=== PATIENT | male | born 1970 | race African-American/Black ===

== ENCOUNTER 2017-07-23 18:43 | Emergency (ER) | payer MEDICAID, OTHER ==
[~2017-07-23] VITALS: Ht 170.2 cm; Wt 88.9 kg
[2017-07-23 18:43] VITALS: BP 123/90
[2017-07-23] MEDS ORDERED: KETOROLAC TROMETHAMINE INJ 60 MG/2 ML VIAL IM ONE (19:00)
[2017-07-23] MEDS ORDERED: KETOROLAC TROMETHAMINE INJ 30 MG/ML VIAL ONE (19:06)
== END 2017-07-23 19:14 | disposition home or self-care (01) ==
LOC: ER 18:48
DX: M25.562 Pain in left knee (principal); I10 Essential (primary) hypertension; Z88.0 Allergy status to penicillin
CPT/HCPCS: A4606; J1885; Z7610

== ENCOUNTER 2017-11-04 12:35 | Emergency (ER) | payer MEDICAID, OTHER ==
[~2017-11-04] VITALS: Ht 170.2 cm; Wt 90.3 kg
--- NOTE | 2017-11-04 12:40 | NUR ---
PATIENT TO ED DT DISCOLORATION ON LEFT KNEE S/P ARTHROSCOPIC LAST 10/24/17. PATIENT'S VSS.,.
[2017-11-04 13:11] VITALS: BP 130/80
== END 2017-11-04 13:13 | disposition home or self-care (01) ==
LOC: ER 12:36
DX: G89.18 Other acute postprocedural pain (principal); M25.562 Pain in left knee; I10 Essential (primary) hypertension; Z88.0 Allergy status to penicillin
CPT/HCPCS: 99281; A4606; Z7610; Z7502

== ENCOUNTER 2017-11-27 08:10 | Emergency (ER) | payer MEDICAID ==
[~2017-11-27] VITALS: Ht 170.2 cm; Wt 89.8 kg
[2017-11-27 08:15] VITALS: BP 136/90
== END 2017-11-27 08:40 | disposition home or self-care (01) ==
LOC: ER 08:11
DX: J20.9 Acute bronchitis, unspecified (principal); I10 Essential (primary) hypertension; F10.10 Alcohol abuse, uncomplicated; Z88.0 Allergy status to penicillin
CPT/HCPCS: 99283; A4606; Z7610

== ENCOUNTER 2018-04-03 17:07 | Emergency (ER) | payer MEDICAID, OTHER ==
[~2018-04-03] VITALS: Ht 170.2 cm; Wt 93.0 kg
[2018-04-03 17:28] VITALS: BP 135/77
[2018-04-03] MEDS ORDERED: ACETAMINOPHEN ES 500 MG TABLET ONE (17:58)
[2018-04-03] MEDS ORDERED: KETOROLAC TROMETHAMINE INJ 30 MG/ML VIAL ONE (17:58)
[2018-04-03] MEDS ORDERED: KETOROLAC TROMETHAMINE INJ 60 MG/2 ML VIAL IM ONE (18:00)
[2018-04-03] MEDS ORDERED: ACETAMINOPHEN ES 500 MG TABLET PO ONE (18:00)
== END 2018-04-03 18:13 | disposition home or self-care (01) ==
LOC: ER 17:08
DX: M25.562 Pain in left knee (principal); I10 Essential (primary) hypertension; Z88.0 Allergy status to penicillin; X50.9XXA Other and unspecified overexertion or strenuous movements or postures, initial encounter; Y93.89 Activity, other specified; Y92.89 Other specified places as the place of occurrence of the external cause; Y99.8 Other external cause status
CPT/HCPCS: A4606; J1885; Z7610

== ENCOUNTER 2019-05-30 04:33 | Emergency (ER) | payer MEDICAID, OTHER ==
[~2019-05-30] VITALS: Ht 170.2 cm; Wt 91.6 kg
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
--- NOTE | 2019-05-30 05:06 | NUR ---
X RAY AT BEDSIDE
[2019-05-30] MEDS ORDERED: IBUPROFEN 400 MG TABLET ONE (05:41)
--- NOTE | 2019-05-30 05:44 | NUR ---
PT REFUSED TO RECEIVED MOTRIN 800MG. PT REPORTS SELAM MESA PRIOR TO GOING TO HOSP. MD AWARE
[2019-05-30] MEDS ORDERED: IBUPROFEN 400 MG TABLET PO ONE (06:00)
--- NOTE | 2019-05-30 06:03 | NUR ---
Patient discharged to home in stable condition. Written and verbal after care instructions given. Patient verbalizes understanding of instruction. Pt ambulatory with a limp
[2019-05-30 06:04] VITALS: BP 138/74
== END 2019-05-30 06:04 | disposition home or self-care (01) ==
LOC: ER 04:35
DX: M25.562 Pain in left knee (principal); I10 Essential (primary) hypertension; F10.10 Alcohol abuse, uncomplicated; Z88.0 Allergy status to penicillin; Z98.890 Other specified postprocedural states; Y90.9 Presence of alcohol in blood, level not specified; W22.8XXA Striking against or struck by other objects, initial encounter; Y93.89 Activity, other specified; Y92.89 Other specified places as the place of occurrence of the external cause; Y99.8 Other external cause status
CPT/HCPCS: 73564-TC

== ENCOUNTER 2021-10-25 08:33 | Emergency (ER) | payer OTHER ==
[~2021-10-25] VITALS: Ht 170.2 cm; Wt 89.8 kg
[2021-10-25 08:40] VITALS: BP 135/100
[2021-10-25] MEDS ORDERED: FLUORESCEIN SODIUM OPHTH 1 EA STRIP ONE (08:44)
--- NOTE | 2021-10-25 08:46 | NUR ---
AT BEDSIDE FOR EVAL.
[2021-10-25] MEDS ORDERED: CIPR5DRO EACHEYE (08:54)
--- NOTE | 2021-10-25 09:07 | NUR ---
Patient discharged to home in stable condition. Written and verbal after care instructions given. Patient verbalizes understanding of instruction.
== END 2021-10-25 09:11 | disposition home or self-care (01) ==
LOC: ER 08:35
DX: T15.82XA Foreign body in other and multiple parts of external eye, left eye, initial encounter (principal); I10 Essential (primary) hypertension; Z98.890 Other specified postprocedural states; Z88.0 Allergy status to penicillin; X58.XXXA Exposure to other specified factors, initial encounter; Y93.89 Activity, other specified; Y92.89 Other specified places as the place of occurrence of the external cause; Y99.8 Other external cause status

== ENCOUNTER 2022-04-12 07:49 | Emergency (ER) | payer OTHER ==
[~2022-04-12] VITALS: Ht 170.2 cm; Wt 79.4 kg
[~2022-04-12 07:49] MED LIST: CIPR5DRO EACHEYE
[2022-04-12 07:55] VITALS: BP 140/89
--- NOTE | 2022-04-12 07:55 | NUR ---
"SINUS INFECTION" X 14 DAYS, UNABLE TO GET A PCP APPOINTMENT. VITALS ARE WITHIN NORMAL LMIITS, NO RESPIRATORY DISTRESS NOTED.
[2022-04-12] MEDS ORDERED: DOXY100C2 PO (08:31)
--- NOTE | 2022-04-12 08:40 | NUR ---
Patient discharged to home in stable condition. Written and verbal after care instructions given. Patient verbalizes understanding of instruction.
== END 2022-04-12 08:41 | disposition home or self-care (01) ==
LOC: ER 08:00
DX: J32.9 Chronic sinusitis, unspecified (principal); I10 Essential (primary) hypertension; Z88.0 Allergy status to penicillin; Z79.899 Other long term (current) drug therapy

== ENCOUNTER 2023-04-10 05:20 | Emergency (ER) | payer OTHER ==
[~2023-04-10] VITALS: Ht 170.2 cm; Wt 81.6 kg
[~2023-04-10 05:20] MED LIST changes: +DOXY100C2 PO
--- NOTE | 2023-04-10 05:20 | NUR ---
BIBS C/O LEFT KNEE PAIN X 6 DAYS. DENIES TRAUMA. PT AAOX4, SITTING COMFORTABLY IN BED.
[2023-04-10] MEDS ORDERED: KETOROLAC TROMETHAMINE INJ 30 MG/ML VIAL ONE (06:42)
[2023-04-10 07:00] VITALS: BP 138/89
[2023-04-10] MEDS ORDERED: KETOROLAC TROMETHAMINE INJ 60 MG/2 ML VIAL IM ONE (07:00)
--- NOTE | 2023-04-10 07:00 | NUR ---
Patient discharged to home in stable condition. Written and verbal after care instructions given. Patient verbalizes understanding of instruction.
== END 2023-04-10 07:00 | disposition home or self-care (01) ==
LOC: ER 05:30
DX: M17.12 Unilateral primary osteoarthritis, left knee (principal); I10 Essential (primary) hypertension; Z98.890 Other specified postprocedural states; Z79.899 Other long term (current) drug therapy; Z88.0 Allergy status to penicillin
CPT/HCPCS: 99283; 96372; J1885

== ENCOUNTER 2023-10-04 06:58 | Emergency (ER) | payer OTHER ==
[~2023-10-04] VITALS: Ht 170.2 cm; Wt 83.9 kg
[2023-10-04] MEDS ORDERED: KETOROLAC TROMETHAMINE INJ 30 MG/ML VIAL ONE (07:47)
[2023-10-04] MEDS ORDERED: KETOROLAC TROMETHAMINE INJ 60 MG/2 ML VIAL IM ONE (08:00)
[2023-10-04 08:02] VITALS: BP 136/99; TEMP 97.9; O2SAT 97
== END 2023-10-04 08:02 | disposition home or self-care (01) ==
LOC: ER 07:05
DX: M17.12 Unilateral primary osteoarthritis, left knee (principal); I10 Essential (primary) hypertension; F17.200 Nicotine dependence, unspecified, uncomplicated; Z79.899 Other long term (current) drug therapy; Z98.890 Other specified postprocedural states; Z88.0 Allergy status to penicillin
CPT/HCPCS: 99283; 96372; J1885